=== PATIENT | female | born 1955 | race Caucasian/White ===

== ENCOUNTER 2018-02-01 16:24 | Inpatient (IN) | payer MEDICARE, OTHER, SELFPAY | END 2018-02-06 18:20 | disposition home or self-care (01) | DRG 340 | PROVIDERS: Admitting Provider Surgery; Emergency Provider Emergency Medicine; PCP Family Medicine; Visit Provider Surgery | DX: K35.2 Acute appendicitis with generalized peritonitis (principal); G54.0 Brachial plexus disorders; M79.7 Fibromyalgia; R00.0 Tachycardia, unspecified; B96.20 Unspecified Escherichia coli [E. coli] as the cause of diseases classified elsewhere; R06.89 Other abnormalities of breathing; F17.200 Nicotine dependence, unspecified, uncomplicated; R10.12 Left upper quadrant pain; B96.6 Bacteroides fragilis [B. fragilis] as the cause of diseases classified elsewhere | CPT/HCPCS: 36415; 71260; 71275; 74174; 80048; 80053; 81003; 83605; 83690; 85025; 85610; 85730; 87040; 87070; 87075; 87076; 87077; 87186; 87205; 88304; 93005; 93010; 96361; 96374; 96375; 99058; 99285; J0360; J1100; J1170; J1650; J1885; J2060; J2270; J2405; J2543; J2704; J3010; J7121; Q9967 ==

== ENCOUNTER 2018-02-17 16:26 | Inpatient (IN) | payer MEDICARE, OTHER, SELFPAY ==
[2018-02-17] VITALS (8 sets, daily range): BP systolic 111–147; BP diastolic 69–97; PULSE 71–91; RESP 12–22; TEMP 36.2–36.7; O2SAT 97–100; BMI 27.4
--- NOTE | 2018-02-17 16:58 | DI.CT.S_ITS ---
PROCEDURE: CT ABDOMEN PELVIS W CON INDICATIONS: abdominal pain TECHNIQUE: After the administration of intravenous contrast, 5 mm thick sections acquired from the diaphragm to the symphysis. 5 mm coronal and sagittal reformats were acquired. For radiation dose reduction, the following was used: automated exposure control, adjustment of mA and/or kV according to patient size. COMPARISON: [facility], CT, ANGIO CHEST ABDOMEN PELVIS, 02/01/2018, 17:06. FINDINGS: Image quality: Excellent. ABDOMEN: Lung bases: Lung bases are clear. Heart size is normal. Solid organs: Enlarged gallbladder with small amount of pericholecystic fluid. Normal gallbladder wall thickness. Minimal intrahepatic and extrahepatic ductal dilatation with no obstructing lesion identified. The pancreatic duct is at the upper limits of normal. Pancreatic parenchyma is normal with no abnormal masses and expected enhancement. Kidneys and ureters are normal. Peritoneum and bowel: Bowel loops demonstrate normal wall thickness and caliber. There is a linear enhancing structure extending along the paracolic gutter from the gallbladder to the cecum (se 4 im 28). It measures 6 mm in greatest diameter and extends 8.5 CM (craniocaudal). Interval changes of appendectomy. No bowel perforation or obstruction. Nodes and vessels: No retroperitoneal or mesenteric adenopathy by size criteria. Aorta and inferior vena cava are normal in size. Miscellaneous: No ventral hernias. PELVIS: Genitourinary: Bladder wall thickness is normal. Hysterectomy. Miscellaneous: No inguinal hernias or adenopathy. Bones: No suspicious bony lesions. No vertebral body compression fractures. IMPRESSION: 1. Interval appendectomy. 2. Enhancing linear structure extends from the cecum to the gallbladder in the right paracolic gutter. This finding may be related to the treatment of the patient's appendicitis however its etiology and significance are unknown. 3. The gallbladder is enlarged with pericholecystic fluid. Gallbladder wall thickness is normal. There is mild dilatation of intra-and extrahepatic biliary ducts and a prominent pancreatic duct. No obstructing lesion is identified. Overall findings do not definitely support acute cholecystitis. Please correlate with laboratory values. Consider a HIDA scan for further evaluation. Dictated by: Francisco Vickers M.D. on 02/17/2018 at 18:27 Approved by: Francisco Vickers M.D. on 02/17/2018 at 18:35
[2018-02-17 17:12] LABS: Add Manual Diff / Slide Review NO; Basophils Percent Auto 0.8 % (0-2); Eosinophils Percent Auto 2.1 % (2-4); Hematocrit 35.2 % (36-46); Lymphocytes Percent Auto 17.7 % (25-40); Mean Corpuscular HGB Conc 34.1 % (30-36); Mean Corpuscular Hemoglobin 32.4 PG (26-34); Mean Corpuscular Volume 95.1 fL (80-100); Monocytes Percent Auto 3.9 % (3-14); Neutrophils Absolute Auto 10100 /uL (3000-5900); Neutrophils Percent Auto 75.5 % (50-75); Platelet Count 420 X10^3/uL (150-400); Red Cell Distribution Width 12.8 % (11.6-14.8); White Blood Cell Count 13.4 X10^3/uL (4.5-11.0)
[2018-02-17 17:21] LABS: Alanine Aminotransferase 43 IU/L (9-52); Albumin 4.4 g/dL (3.5-5.0); Albumin Globulin Ratio 1.3 (1.0-2.8); Alkaline Phosphatase 133 U/L (38-126); Aspartate Aminotransferase 147 IU/L (14-36); BUN Creatinine Ratio 12.5 (6-22); Bilirubin Total 0.4 mg/dL (0.2-1.3); Calcium 9.2 mg/dL (8.4-10.2); Estimated Glomerular Filt Rate > 60.0 mL/min (>60); Globulin 3.3 g/dL (1.7-4.1); Glucose 102 mg/dL (80-110); HEMOLYSIS < 15 (0-50); Potassium 3.8 mmol/L (3.4-5.1); Sodium 141 mmol/L (137-145); Total Protein 7.7 g/dL (6.3-8.2)
[2018-02-17 17:22] LABS: Lactate (Lactic Acid) 0.7 mmol/L (0.7-2.1)
[2018-02-17] MEDS: HYDROMORPHONE 0.5 MG SYRINGE 1 MG IV (17:42)
[2018-02-17] MEDS: PIPERACILLIN-TAZO 4.5 GM/100 ML FROZ.PIGGY IV (17:42)
[2018-02-17] MEDS: SODIUM CHLORIDE 0.9% 1,000 ML 1000 ML IV (17:42)
[2018-02-17 18:18] LABS: Appearance Urine UA CLEAR; Bilirubin Urine UA NEGATIVE (NEGATIVE); Color Urine UA YELLOW; Glucose Urine UA NEGATIVE (NEGATIVE); Ketones Urine UA NEGATIVE (NEGATIVE); Leukocyte Esterase Urine UA NEGATIVE (NEGATIVE); Nitrite Urine UA NEGATIVE (NEGATIVE); Occult Blood Urine UA NEGATIVE (NEGATIVE); Protein Urine UA NEGATIVE (NEGATIVE); Urobilinogen Urine UA 0.2 E.U./dL (0.2); pH Urine UA 6.5 (4.5-8.0)
[2018-02-17 18:48] LABS: Bacteria Urine None Seen; Culture Indicated Urine Cult Not Indicated; RBC Urine None Seen (0-5/HPF); Squamous Epithelial Cell Urine 0-1 /HPF; Urine Comments Microscopic Normal; WBC Urine None Seen (0-5/HPF)
[2018-02-17 19:39] LABS: Lipase 148 U/L (23-300)
--- NOTE | 2018-02-17 19:50 | ED_ITS ---
HPI - Abdominal Pain General Chief Complaint: Abdominal Pain Stated Complaint: States recent appendectomy/increased pain Time Seen by Provider: 02/17/18 16:58 History of Present Illness HPI narrative: HPI 62-year-old female presents for evaluation of significant right lower quadrant abdominal pain that increased over the last day. Patient continues pass flatus, stool, urine at baseline. Patient denies fevers and chills. Patient had significant pain on jostling or bumps. Patient reports that she had a surgical intervention for perforated appendix approximately [address] Aceves. M/S/F/SocHx notable for: please see HPI; remainder reviewed with patient and in chart. ROS: Negative constitutional, eye, cardiovascular, pulmonary, GI, , MSK, skin , neurologic, psychiatric, endocrine unless noted in the HPI. Exam Gen: pleasant, appears uncomfortable, not in extremis. HEENT: NC, AT, PEERL, EOMI. Resp: Clear to auscultation bilaterally, normal work of breathing, no accessory muscle usage. Card: Regular rate and rhythm with no murmurs, rubs, or gallops, extremities warm and well perfused. GI: diffuse tenderness to palpation, greatest in the right lower quadrant, moderate rebound, no guarding. : No suprapubic tenderness to palpation. MSK: No visible deformities, strength and tone without visually appreciable deficit. Skin: Normal color with no visible lesions. Neuro: AO x 3, no facial asymmetry, vision and hearing WNL. Psych: Mood and affect appropriate. Labs / Imaging: WBC 13.4, hemoglobin 12.0, platelet 420, neutrophils 100,100, INR 1.0, sodium 141, potassium 3.8, lactic acid 0.7, total bilirubin 0.4, AST 137, ALT 43, alkaline phosphatase 133, lipase pending. CT abdomen/pelvis: interval appendectomy. Enhancing linear structure extends from the cecum to the gallbladder in the right paracolic gutter. This finding may be related to the treatment of the patient?s appendicitis however its etiology and significance are unknown. The gallbladder is enlarged with pericholecystic fluid. Gallbladder wall thicknesses normal. There is mild dilatation of intra-and extrahepatic biliary docs and prominent pancreatic duct. No obstructing lesion is identified. Overall finds do not definitively support acute cholecystitis. Please correlate with laboratory values. Consider HIDA scan for further evaluation. MDM Previous chart, nursing note, labs, imaging, and vitals reviewed. A: 62-year-old female with a perforated appendix approximately 2 weeks ago operated on by Dr. Aceves presents for one day of right lower quadrant pain and abdominal swelling. DDx & Evaluation: patient with mild leukocytosis, lactic WNL, given IV hydration and Zosyn on arrival. CT concerning for a fluid collection the right paracolic gutter as well as findings suggestive of cholecystitis. Surgery consult pending at time of patient care transfer to the overnight provider, Dr. Lynne. Impression: abdominal pain (please reference below for remainder of encounter information) Related Data Home Medications Medication Instructions Recorded Confirmed [MEDICAL MARIJUANA] #0 01/29/17 omega 7-req-wkh-fish oil [Fish Oil] #0 04/23/17 desipramine 50 mg PO #0 02/01/18 Previous Rx's Medication Instructions Recorded amoxicillin-pot clavulanate 875 mg PO BID #14 tab 02/06/18 [Augmentin] gabapentin 300 mg PO TID #90 cap 02/06/18 oxycodone-acetaminophen 0 tab PO Q4HP PRN #30 02/06/18 Allergies Allergy/AdvReac Type Severity Reaction Status Date / Time Cephalosporins AdvReac Mild DIARRHEA Unverified 02/17/18 17:41 [CEPHALOSPORINS] PFSH Social History Smoking Status: Current every day smoker MDM - Abdominal Pain Lab Data Result diagrams: 02/17/18 17:00 02/17/18 17:00 Lab Results 02/17/18 02/17/18 02/17/18 Range/Units 17:00 17:00 17:00 WBC 13.4 H (4.5-11.0) X10^3/uL RBC 3.70 L (4.0-5.2) X10^6/uL Hgb 12.0 (12.0-16.0) g/dL Hct 35.2 L (36-46) % MCV 95.1 (80-100) fL MCH 32.4 (26-34) PG MCHC 34.1 (30-36) % RDW 12.8 (11.6-14.8) % Plt Count 420 H (150-400) X10^3/uL Neut % (Auto) 75.5 H (50-75) % Lymph % (Auto) 17.7 L (25-40) % [place] % (Auto) 3.9 (3-14) % Eos % (Auto) 2.1 (2-4) % Baso % (Auto) 0.8 (0-2) % Neut # (Auto) 80820 H (7395-1071) /uL Sodium 141 (137-145) mmol/L Potassium 3.8 (3.4-5.1) mmol/L Chloride 102.0 (98-107) mmol/L Carbon Dioxide 29.0 (22-32) mmol/L BUN 10.0 (7-17) mg/dL Creatinine 0.80 (0.52-1.04) mg/dL Estimated GFR > 60.0 (>60) mL/min BUN/Creatinine Ratio 12.5 (6-22) Glucose 102 (80-110) mg/dL Lactate 0.7 (0.7-2.1) mmol/L Calcium 9.2 (8.4-10.2) mg/dL Total Bilirubin 0.4 (0.2-1.3) mg/dL AST 147 H (14-36) IU/L ALT 43 (9-52) IU/L Alkaline Phosphatase 133 H (38-126) U/L Total Protein 7.7 (6.3-8.2) g/dL Albumin 4.4 (3.5-5.0) g/dL Globulin 3.3 (1.7-4.1) g/dL Albumin/Globulin Ratio 1.3 (1.0-2.8) Lipase (23-300) U/L Urine Color Urine Appearance Urine pH (4.5-8.0) Ur Specific [place] (1.000-1.035) Urine Protein (NEGATIVE) Urine Glucose (UA) (NEGATIVE) g/dL Urine Ketones (NEGATIVE) Urine Occult Blood (NEGATIVE) Urine Nitrate (NEGATIVE) Urine Bilirubin (NEGATIVE) Urine Urobilinogen (0.2) E.U./dL Ur Leukocyte Esterase (NEGATIVE) Urine RBC (0-5/HPF) Urine WBC (0-5/HPF) Ur Squamous Epith Cells Urine Bacteria (None) Ur Culture Indicated? Micro UA Comment 02/17/18 02/17/18 Range/Units 17:00 17:10 WBC (4.5-11.0) X10^3/uL RBC (4.0-5.2) X10^6/uL Hgb (12.0-16.0) g/dL Hct (36-46) % MCV (80-100) fL MCH (26-34) PG MCHC (30-36) % RDW (11.6-14.8) % Plt Count (150-400) X10^3/uL Neut % (Auto) (50-75) % Lymph % (Auto) (25-40) % [place] % (Auto) (3-14) % Eos % (Auto) (2-4) % Baso % (Auto) (0-2) % Neut # (Auto) (9175-4140) /uL Sodium (137-145) mmol/L Potassium (3.4-5.1) mmol/L Chloride (98-107) mmol/L Carbon Dioxide (22-32) mmol/L BUN (7-17) mg/dL Creatinine (0.52-1.04) mg/dL Estimated GFR (>60) mL/min BUN/Creatinine Ratio (6-22) Glucose (80-110) mg/dL Lactate (0.7-2.1) mmol/L Calcium (8.4-10.2) mg/dL Total Bilirubin (0.2-1.3) mg/dL AST (14-36) IU/L ALT (9-52) IU/L Alkaline Phosphatase (38-126) U/L Total Protein (6.3-8.2) g/dL Albumin (3.5-5.0) g/dL Globulin (1.7-4.1) g/dL Albumin/Globulin Ratio (1.0-2.8) Lipase 148 (23-300) U/L Urine Color Yellow Urine Appearance Clear Urine pH 6.5 (4.5-8.0) Ur Specific [place] 1.010 (1.000-1.035) Urine Protein Negative (NEGATIVE) Urine Glucose (UA) Negative (NEGATIVE) g/dL Urine Ketones Negative (NEGATIVE) Urine Occult Blood Negative (NEGATIVE) Urine Nitrate Negative (NEGATIVE) Urine Bilirubin Negative (NEGATIVE) Urine Urobilinogen 0.2 (0.2) E.U./dL Ur Leukocyte Esterase Negative (NEGATIVE) Urine RBC None seen (0-5/HPF) Urine WBC None seen (0-5/HPF) Ur Squamous Epith Cells 0-1 /hpf Urine Bacteria None seen (None) Ur Culture Indicated? Cult not indicated Micro UA Comment Microscopic normal Discharge Plan Departure Prescriptions: No Action [MEDICAL MARIJUANA] Qty: 0 RF: 0 omega 8-exv-atm-fish oil [Fish Oil] 1,000 MG capsule Qty: 0 RF: 0 desipramine 50 MG tablet 50 mg PO Qty: 0 RF: 0 oxycodone-acetaminophen 5 MG/325 MG tablet PO Q4HP PRNQty: 30 RF: 0 gabapentin 100 MG capsule 300 mg PO TID Qty: 90 RF: 0 amoxicillin-pot clavulanate [Augmentin] 875 MG/125 MG tablet 875 mg PO BID Qty: 14 RF: 0
--- NOTE | 2018-02-17 23:40 | PC.NURSE ---
Pt arrived to floor at 2220. States that discomfort 05/24. notified, new orders recieved. HL RAC intact/ patent. Pt oritned to room and call system. Call light w/in reach. Continue w/plan of care.
[2018-02-18] VITALS (7 sets, daily range): BP systolic 115–148; BP diastolic 72–81; PULSE 63–74; RESP 12–18; TEMP 36.3–36.7; O2SAT 95–98
[2018-02-18] MEDS: SODIUM CHLORIDE 0.9% 1,000 ML 125 ML IV ×3 (00:04→21:42)
[2018-02-18] MEDS: PIPERACILLIN-TAZO 3.375 GM/50 ML FROZ.PIGGY IV ×4 (00:08→20:05)
[2018-02-18] MEDS: HYDROMORPHONE PCA 6 MG/30 ML PCA.VIAL IV ×2 (07:25→13:25)
--- NOTE | 2018-02-18 07:54 | PM.HP.1 ---
History of Present Illness Date Patient Seen: 02/18/18 Time Patient Seen: 07:54 Chief complaint: States recent appendectomy/increased pain Narrative: Anita Stewart is a 62 year old female who is status post laparoscopic appendectomy for ruptured appendicitis on February 01, 2018 and presented to the emergency department late last evening with progressive abdominal pain. She feels subjectively distended but has not had any nausea or vomiting. Denies any fever or chills. No wound drainage or erythema. She has been ambulating without difficulty. She notes no exacerbating foods or activities with regard to her pain. Denies dysuria or hematuria. She has been moving her bowels daily although the stool has been somewhat liquid in nature. No melena, hematochezia, or bright red blood per rectum. Passing flatus normally. She has been tolerating a regular diet without any issues with regard to her pain. [facility] Medical History Fibromyalgia (Chronic) Social History household members: spouse Smoking Status: Current every day smoker Meds Home Medications Medication Instructions Recorded Confirmed Type [MEDICAL MARIJUANA] #0 01/29/17 History omega 8-unf-hfh-fish oil [Fish Oil] #0 04/23/17 History desipramine 50 mg PO #0 02/01/18 History Generic Name Dose Route Start Last Admin Trade Name Freq PRN Reason Stop Dose Admin Acetaminophen 650 mg 02/18/18 07:48 Tylenol PO Q6HR PRN As Needed for Fever/Mild Pain Al Hydrox/Mg Hydrox/Simethicone 30 ml 02/18/18 07:48 Maalox Plus PO Q6HR PRN Dyspepsia Calcium Carbonate 1,000 mg 02/18/18 07:48 Tums PO Q4HR PRN Dyspepsia Docusate Sodium 100 mg 02/18/18 21:00 Colace PO BID JORGE A HYDROMORPHONE [employer]ID [employer]ENDANT 6 mg in 30 mls @ 0 mls/hr 02/18/18 06:00 02/18/18 07:25 Dilaudid 6 Mg/30 Ml IV 0 mls/hr Q8HR JORGE A Administration Protocol Piperacillin/Tazobactam/Dextrose 3.375 gm in 50 mls @ 100 mls/hr 02/18/18 00:01 02/18/18 07:20 Zosyn IV Infused Q6H JORGE A Infusion Sodium Chloride 1,000 mls @ 125 mls/hr 02/17/18 23:00 02/18/18 00:04 Normal Saline 0.9% IV 125 mls/hr CONT JORGE A Administration Sodium Chloride 1,000 mls @ 100 mls/hr 02/18/18 08:00 Normal Saline 0.45% IV CONT JORGE A Ibuprofen 600 mg 02/18/18 07:48 Advil PO Q6HR PRN As Needed for Fever/Mild Pain Magnesium Hydroxide 30 ml 02/18/18 07:48 Milk Of Magnesia PO DAILY PRN Constipation Naloxone HCl 0.2 mg 02/17/18 23:00 Narcan IV Q2MIN PRN Opiate Reversal Protocol Ondansetron HCl 4 mg 02/18/18 07:48 Zofran IV Q8HR PRN Nausea And Vomiting Pantoprazole Sodium 20 mg 02/19/18 06:00 Protonix PO 0600 JORGE A Promethazine HCl 12.5 mg 02/18/18 07:48 Phenadoz [place] Q6HR PRN Nausea And Vomiting Allergies Allergy/AdvReac Type Severity Reaction Status Date / Time Cephalosporins AdvReac Mild DIARRHEA Unverified 02/17/18 17:41 [CEPHALOSPORINS] Review of Systems Review of Systems All systems reviewed & are unremarkable except as noted in HPI and below Exam Vital Signs (past 8 hours): Vital Signs - 8 hr 02/18/18 00:15 02/18/18 05:42 02/18/18 07:25 Temperature 97.8 F 97.9 F 97.4 F L Pulse Rate 73 73 74 Respiratory Rate 18 18 18 Blood Pressure 131/72 H 130/81 H 148/72 H Pulse Oximetry 96 96 97 Temperature 97.4 F Temperature 97.9 F Temperature 97.8 F Pulse Rate 74 Pulse Rate 73 Pulse Rate 73 Respiratory Rate 18 Respiratory Rate 18 Respiratory Rate 18 Blood Pressure 148/72 Blood Pressure 130/81 Blood Pressure 131/72 Pulse Oximetry 97 Pulse Oximetry 96 Pulse Oximetry 96 Narrative Exam Narrative: Well-nourished well-developed female lying comfortably in bed in no acute distress. In fact, she appears quite comfortable overall. Alert oriented x3. Nursing staff is at the bedside during my visit. She is completely hemodynamically stable with no tachycardia or hypotension. No fevers in the emergency department or since admission with a maximum temperature of approximately 97.9 Sclera nonicteric Neck is supple Regular rate and rhythm. No murmurs. Abdomen is soft and minimally distended. However, she is not tympanitic. Her incisions are healing nicely without erythema, ecchymosis, hematoma, or seroma. No drainage from the incisions. No hepatomegaly. Negative Bledsoe sign. No masses. She is appropriately tender in the right lower quadrant and right lateral abdomen but without guarding or rebound. Mild suprapubic tenderness only. Extremities show no clubbing, cyanosis, or edema Objective Labs Result Diagrams: 02/17/18 17:00 02/17/18 17:00 Labs: Laboratory Results - last 24 hr 02/17/18 02/17/18 02/17/18 17:00 17:00 17:00 WBC 13.4 H RBC 3.70 L Hgb 12.0 Hct 35.2 L MCV 95.1 MCH 32.4 MCHC 34.1 RDW 12.8 Plt Count 420 H Neut % (Auto) 75.5 H Lymph % (Auto) 17.7 L [place] % (Auto) 3.9 Eos % (Auto) 2.1 Baso % (Auto) 0.8 Neut # (Auto) 21747 H Sodium 141 Potassium 3.8 Chloride 102.0 Carbon Dioxide 29.0 BUN 10.0 Creatinine 0.80 Estimated GFR > 60.0 BUN/Creatinine Ratio 12.5 Glucose 102 Lactate 0.7 Calcium 9.2 Total Bilirubin 0.4 AST 147 H ALT 43 Alkaline Phosphatase 133 H Total Protein 7.7 Albumin 4.4 Globulin 3.3 Albumin/Globulin Ratio 1.3 Lipase Urine Color Urine Appearance Urine pH Ur Specific [place] Urine Protein Urine Glucose (UA) Urine Ketones Urine Occult Blood Urine Nitrate Urine Bilirubin Urine Urobilinogen Ur Leukocyte Esterase Urine RBC Urine WBC Ur Squamous Epith Cells Urine Bacteria Ur Culture Indicated? Micro UA Comment 02/17/18 02/17/18 17:00 17:10 WBC RBC Hgb Hct MCV MCH MCHC RDW Plt Count Neut % (Auto) Lymph % (Auto) [place] % (Auto) Eos % (Auto) Baso % (Auto) Neut # (Auto) Sodium Potassium Chloride Carbon Dioxide BUN Creatinine Estimated GFR BUN/Creatinine Ratio Glucose Lactate Calcium Total Bilirubin AST ALT Alkaline Phosphatase Total Protein Albumin Globulin Albumin/Globulin Ratio Lipase 148 Urine Color Yellow Urine Appearance Clear Urine pH 6.5 Ur Specific [place] 1.010 Urine Protein Negative Urine Glucose (UA) Negative Urine Ketones Negative Urine Occult Blood Negative Urine Nitrate Negative Urine Bilirubin Negative Urine Urobilinogen 0.2 Ur Leukocyte Esterase Negative Urine RBC None seen Urine WBC None seen Ur Squamous Epith Cells 0-1 /hpf Urine Bacteria None seen Ur Culture Indicated? Cult not indicated Micro UA Comment Microscopic normal Assessment & Plan Plan: Plan: 62-year-old female now approximately 16 days status post laparoscopic appendectomy for perforated appendicitis who presents now with abdominal pain most likely related to generalized peritoneal inflammation. I doubt acute cholecystitis. There is no evidence of postoperative abscess. No evidence of appendiceal stump leak. No evidence of bowel obstruction or other complications. She does have a mild leukocytosis which could be inflammatory in nature versus occult infection as represented on CT scan by some mild residual fluid in the right pericolic gutter. Again, however, there is no discrete abscess. She will be admitted for intravenous fluid resuscitation. Intravenous Zosyn has been reinstituted as well based on her prior hospitalization and culture results. I will allow her clear liquid diet today since she has no obvious acute surgical disease requiring intervention at the moment. If she has difficulties with progressive right-sided pain, nausea, vomiting, or inability to tolerate a diet then I will obtain a CCK HIDA scan to better assess the gallbladder. If she does indeed tolerate clear liquids throughout the day then will advance her to a regular diet tonight. Possibly home tomorrow if she does well. I will repeat her CBC, complete metabolic panel, and procalcitonin level tomorrow morning. She may continue home medications. I discussed all the above with the patient in detail. All questions were answered to her satisfaction, and she voiced understanding. Orders were written.
--- NOTE | 2018-02-18 07:57 | P.HP_ITS ---
History of Present Illness Date Patient Seen: 02/18/18 Time Patient Seen: 07:54 Chief complaint: States recent appendectomy/increased pain Narrative: Anita Stewart is a 62 year old female who is status post laparoscopic appendectomy for ruptured appendicitis on February 01, 2018 and presented to the emergency department late last evening with progressive abdominal pain. She feels subjectively distended but has not had any nausea or vomiting. Denies any fever or chills. No wound drainage or erythema. She has been ambulating without difficulty. She notes no exacerbating foods or activities with regard to her pain. Denies dysuria or hematuria. She has been moving her bowels daily although the stool has been somewhat liquid in nature. No melena, hematochezia, or bright red blood per rectum. Passing flatus normally. She has been tolerating a regular diet without any issues with regard to her pain. [facility] Medical History Fibromyalgia (Chronic) Social History household members: spouse Smoking Status: Current every day smoker Meds Home Medications Medication Instructions Recorded Confirmed Type [MEDICAL MARIJUANA] #0 01/29/17 History omega 3-mio-qze-fish oil [Fish Oil] #0 04/23/17 History desipramine 50 mg PO #0 02/01/18 History Generic Name Dose Route Start Last Admin Trade Name Freq PRN Reason Stop Dose Admin Acetaminophen 650 mg 02/18/18 07:48 Tylenol PO Q6HR PRN As Needed for Fever/Mild Pain Al Hydrox/Mg Hydrox/Simethicone 30 ml 02/18/18 07:48 Maalox Plus PO Q6HR PRN Dyspepsia Calcium Carbonate 1,000 mg 02/18/18 07:48 Tums PO Q4HR PRN Dyspepsia Docusate Sodium 100 mg 02/18/18 21:00 Colace PO BID JORGE A HYDROMORPHONE STREET LIGHT SERVICER SUPERVISOR 6 mg in 30 mls @ 0 mls/hr 02/18/18 06:00 02/18/18 07:25 Dilaudid 6 Mg/30 Ml IV 0 mls/hr Q8HR JORGE A Administration Protocol Piperacillin/Tazobactam/Dextrose 3.375 gm in 50 mls @ 100 mls/hr 02/18/18 00: 01 02/18/18 07:20 Zosyn IV Infused Q6H JORGE A Infusion Sodium Chloride 1,000 mls @ 125 mls/hr 02/17/18 23:00 02/18/18 00:04 Normal Saline 0.9% IV 125 mls/hr CONT JORGE A Administration Sodium Chloride 1,000 mls @ 100 mls/hr 02/18/18 08:00 Normal Saline 0.45% IV CONT JORGE A Ibuprofen 600 mg 02/18/18 07:48 Advil PO Q6HR PRN As Needed for Fever/Mild Pain Magnesium Hydroxide 30 ml 02/18/18 07:48 Milk Of Magnesia PO DAILY PRN Constipation Naloxone HCl 0.2 mg 02/17/18 23:00 Narcan IV Q2MIN PRN Opiate Reversal Protocol Ondansetron HCl 4 mg 02/18/18 07:48 Zofran IV Q8HR PRN Nausea And Vomiting Pantoprazole Sodium 20 mg 02/19/18 06:00 Protonix PO 0600 JORGE A Promethazine HCl 12.5 mg 02/18/18 07:48 Phenadoz SD Q6HR PRN Nausea And Vomiting Allergies Allergy/AdvReac Type Severity Reaction Status Date / Time Cephalosporins AdvReac Mild DIARRHEA Unverified 02/17/18 17:41 [CEPHALOSPORINS] Review of Systems Review of Systems All systems reviewed & are unremarkable except as noted in HPI and below Exam Vital Signs (past 8 hours): Vital Signs - 8 hr 3 02/18/18 00:15 02/18/18 05:42 02/18/18 07:25 Temperature 97.8 F 97.9 F 97.4 F L Pulse Rate 73 73 74 Respiratory Rate 18 18 18 Blood Pressure 131/72 H 130/81 H 148/72 H Pulse Oximetry 96 96 97 Temperature 97.4 F Temperature 97.9 F Temperature 97.8 F Pulse Rate 74 Pulse Rate 73 Pulse Rate 73 Respiratory Rate 18 Respiratory Rate 18 Respiratory Rate 18 Blood Pressure 148/72 Blood Pressure 130/81 Blood Pressure 131/72 Pulse Oximetry 97 Pulse Oximetry 96 Pulse Oximetry 96 Narrative Exam Narrative: Well-nourished well-developed female lying comfortably in bed in no acute distress. In fact, she appears quite comfortable overall. Alert oriented x3. Nursing staff is at the bedside during my visit. She is completely hemodynamically stable with no tachycardia or hypotension. No fevers in the emergency department or since admission with a maximum temperature of approximately 97.9 Sclera nonicteric Neck is supple Regular rate and rhythm. No murmurs. Abdomen is soft and minimally distended. However, she is not tympanitic. Her incisions are healing nicely without erythema, ecchymosis, hematoma, or seroma. No drainage from the incisions. No hepatomegaly. Negative Bledsoe sign. No masses. She is appropriately tender in the right lower quadrant and right lateral abdomen but without guarding or rebound. Mild suprapubic tenderness only. Extremities show no clubbing, cyanosis, or edema Objective Labs Result Diagrams: 02/17/18 17:00 02/17/18 17:00 Labs: Laboratory Results - last 24 hr 02/17/18 02/17/18 02/17/18 17:00 17:00 17:00 WBC 13.4 H RBC 3.70 L Hgb 12.0 Hct 35.2 L MCV 95.1 MCH 32.4 MCHC 34.1 RDW 12.8 Plt Count 420 H Neut % (Auto) 75.5 H Lymph % (Auto) 17.7 L [place] % (Auto) 3.9 Eos % (Auto) 2.1 Baso % (Auto) 0.8 Neut # (Auto) 05300 H Sodium 141 Potassium 3.8 Chloride 102.0 Carbon Dioxide 29.0 BUN 10.0 Creatinine 0.80 Estimated GFR > 60.0 BUN/Creatinine Ratio 12.5 Glucose 102 Lactate 0.7 Calcium 9.2 Total Bilirubin 0.4 AST 147 H ALT 43 Alkaline Phosphatase 133 H Total Protein 7.7 Albumin 4.4 Globulin 3.3 Albumin/Globulin Ratio 1.3 Lipase Urine Color Urine Appearance Urine pH Ur Specific [place] Urine Protein Urine Glucose (UA) Urine Ketones Urine Occult Blood Urine Nitrate Urine Bilirubin Urine Urobilinogen Ur Leukocyte Esterase Urine RBC Urine WBC Ur Squamous Epith Cells Urine Bacteria Ur Culture Indicated? Micro UA Comment 02/17/18 02/17/18 17:00 17:10 WBC RBC Hgb Hct MCV MCH MCHC RDW Plt Count Neut % (Auto) Lymph % (Auto) [place] % (Auto) Eos % (Auto) Baso % (Auto) Neut # (Auto) Sodium Potassium Chloride Carbon Dioxide BUN Creatinine Estimated GFR BUN/Creatinine Ratio Glucose Lactate Calcium Total Bilirubin AST ALT Alkaline Phosphatase Total Protein Albumin Globulin Albumin/Globulin Ratio Lipase 148 Urine Color Yellow Urine Appearance Clear Urine pH 6.5 Ur Specific [place] 1.010 Urine Protein Negative Urine Glucose (UA) Negative Urine Ketones Negative Urine Occult Blood Negative Urine Nitrate Negative Urine Bilirubin Negative Urine Urobilinogen 0.2 Ur Leukocyte Esterase Negative Urine RBC None seen Urine WBC None seen Ur Squamous Epith Cells 0-1 /hpf Urine Bacteria None seen Ur Culture Indicated? Cult not indicated Micro UA Comment Microscopic normal Assessment & Plan Plan: Plan: 62-year-old female now approximately 16 days status post laparoscopic appendectomy for perforated appendicitis who presents now with abdominal pain most likely related to generalized peritoneal inflammation. I doubt acute cholecystitis. There is no evidence of postoperative abscess. No evidence of appendiceal stump leak. No evidence of bowel obstruction or other complications. She does have a mild leukocytosis which could be inflammatory in nature versus occult infection as represented on CT scan by some mild residual fluid in the right pericolic gutter. Again, however, there is no discrete abscess. She will be admitted for intravenous fluid resuscitation. Intravenous Zosyn has been reinstituted as well based on her prior hospitalization and culture results. I will allow her clear liquid diet today since she has no obvious acute surgical disease requiring intervention at the moment. If she has difficulties with progressive right-sided pain, nausea, vomiting, or inability to tolerate a diet then I will obtain a CCK HIDA scan to better assess the gallbladder. If she does indeed tolerate clear liquids throughout the day then will advance her to a regular diet tonight. Possibly home tomorrow if she does well. I will repeat her CBC, complete metabolic panel , and procalcitonin level tomorrow morning. She may continue home medications. I discussed all the above with the patient in detail. All questions were answered to her satisfaction, and she voiced understanding. Orders were written.
[2018-02-18] MEDS: SODIUM CHLORIDE 0.45% 1,000 ML 100 ML IV (10:09)
--- NOTE | 2018-02-18 11:12 | PC.NURSE ---
Pt alert, oriented, indep in room, using SEAFOOD TECHNOLOGY SPECIALIST for effective pain control to abdomen. Tolerating clear liquids.
--- NOTE | 2018-02-18 11:51 | CM.DANOTE ---
DCP/Assessment continued: Reviewed chart. Patient is a 62yr old female admitted to I.. under OBS status with abd pain. Pt. underwent emergent appendectomy on 02-01-18 at .. with Dr. Aceves. Primary payor is 1)Lianne Chiu 2)[facility]. PCP is Dr. Car in [place]. Met with patient explained CM/SW role. Patient alert and oriented at time of visit. Patient reports that she is I with all ADL's. Pt. does not anticipate any d/c planning needs. Patient resides with spouse/Jj on their boat located at [facility]. Pt. uses no DME at baseline. Currently patient on clear liquid diet and no discharge anticipated for today. P: CM team to continue to follow as needed. Anticipate home with supportive spouse when medically stable. BRISEYDA Goemz
[2018-02-18] MEDS: GABAPENTIN 300 MG CAPSULE PO ×2 (14:06→20:07)
[2018-02-18] MEDS: ONDANSETRON 4 MG/2 ML INJ IV (14:06)
--- NOTE | 2018-02-18 14:55 | PC.NURSE ---
Pt c/o nausea, no emesis, given 4mg ivp zofran.
[2018-02-18] MEDS: HYDROMORPHONE PCA 6 MG/30 ML PCA.VIAL 5.2 MG IV (22:27)
[2018-02-18] MEDS: ACETAMINOPHEN 325 MG TABLET 650 MG PO (22:43)
[2018-02-19] VITALS (8 sets, daily range): BP systolic 121–164; BP diastolic 71–93; PULSE 72–95; RESP 14–20; TEMP 36.3–36.9; O2SAT 93–98
--- NOTE | 2018-02-19 00:46 | PC.NURSE ---
Evening Shift Note: Pt received sitting up in bed, on RA, using dilaudid pharmacist critical care for abdominal pain. Pt used 5.2 mg IV dilaudid. Pt tolerating clear liquid diet, denies nausea. Abdomen is soft and tender to palpation. BTs present in all quadrants except RUQ. Tylenol given for headache. Dr. Loera to bedside. Will continue to monitor, notify MD with changes.
[2018-02-19] MEDS: PIPERACILLIN-TAZO 3.375 GM/50 ML FROZ.PIGGY IV ×4 (01:26→17:56)
[2018-02-19] MEDS: ACETAMINOPHEN 325 MG TABLET 650 MG PO (04:27)
[2018-02-19 05:51] LABS: Add Manual Diff / Slide Review NO; Basophils Percent Auto 0.3 % (0-2); Eosinophils Percent Auto 4.5 % (2-4); Hematocrit 32.3 % (36-46); Hemoglobin 10.8 g/dL (12.0-16.0); Lymphocytes Percent Auto 19.7 % (25-40); Mean Corpuscular HGB Conc 33.6 % (30-36); Mean Corpuscular Hemoglobin 32.5 PG (26-34); Mean Corpuscular Volume 96.8 fL (80-100); Monocytes Percent Auto 6.8 % (3-14); Neutrophils Absolute Auto 5500 /uL (3000-5900); Neutrophils Percent Auto 68.7 % (50-75); Platelet Count 311 X10^3/uL (150-400); Red Blood Cell Count 3.34 X10^6/uL (4.0-5.2); Red Cell Distribution Width 12.7 % (11.6-14.8)
[2018-02-19 06:07] LABS: Alanine Aminotransferase 47 IU/L (9-52); Albumin 3.1 g/dL (3.5-5.0); Albumin Globulin Ratio 1.2 (1.0-2.8); Alkaline Phosphatase 106 U/L (38-126); Aspartate Aminotransferase 63 IU/L (14-36); Bilirubin Total 0.4 mg/dL (0.2-1.3); Calcium 8.5 mg/dL (8.4-10.2); Estimated Glomerular Filt Rate > 60.0 mL/min (>60); Globulin 2.5 g/dL (1.7-4.1); Glucose 90 mg/dL (80-110); HEMOLYSIS < 15 (0-50); Potassium 3.9 mmol/L (3.4-5.1); Sodium 140 mmol/L (137-145); Total Protein 5.6 g/dL (6.3-8.2)
[2018-02-19] MEDS: PANTOPRAZOLE 20 MG TABLET PO (06:11)
[2018-02-19] MEDS: SODIUM CHLORIDE 0.9% 1,000 ML 125 ML IV (06:44)
[2018-02-19] MEDS: HYDROMORPHONE PCA 6 MG/30 ML PCA.VIAL IV ×3 (06:44→16:30)
[2018-02-19 07:15] LABS: Procalcitonin < 0.05 ng/mL (<0.5)
--- NOTE | 2018-02-19 08:00 | DI.NM.S_ITS ---
PROCEDURE: NM HIDA NO EJECTION FRACTION RADIOPHARMACEUTICAL: 4.5 mCi Tc-99m mebrofenin IV. INDICATIONS: 62 year-old female with right upper quadrant pain and nausea, with pericholecystic fluid on recent CT scan. TECHNIQUE: Following intravenous administration of Tc-99m mebrofenin, sequential anterior abdominal images were obtained through at least 60 minutes. COMPARISON: [facility], CT, CT ABDOMEN PELVIS W CON, 02/17/2018, 17:56. FINDINGS: There is normal tracer uptake and excretion by the liver. There is normal visualization of intrahepatic ducts, common bile duct, and the gallbladder. There is normal tracer excretion into duodenum. IMPRESSION: No scintigraphic findings to suggest acute cholecystitis. Prompt flow of radiotracer into the gallbladder lumen. Dictated by: Vivek Goff M.D. on 02/19/2018 at 12:05 Approved by: Vivek Goff M.D. on 02/19/2018 at 12:06
[2018-02-19] MEDS: GABAPENTIN 300 MG CAPSULE PO ×3 (10:13→20:37)
[2018-02-19] MEDS: DOCUSATE 100 MG CAPSULE PO (10:13)
--- NOTE | 2018-02-19 15:51 | PC.NURSE ---
pt will not have surgery on gallbladder, per Dr. Loera patients gallbladder is ok. she will have medical assembler d/cd and start on oral pain medication. incisions x3 from lap appe all wnl and closed with durmobond from surgery a couple of weeks ago. bt +x4, abdomen slightly distended but soft. resting comfortably.
--- NOTE | 2018-02-19 16:02 | PM.PN.1 ---
Subjective Interval history: Pain improved. No nausea or vomiting. Appetite is slowly returning. Still has some vague diffuse abdominal pain and mild distention. However, she continues to pass flatus. No bowel movement today. No dysuria. Date Patient Seen: 02/19/18 Time Patient Seen: 16:02 Exam Vital Signs (past 8 hours): Vital Signs - 8 hr 02/19/18 13:00 Temperature 98.0 F Pulse Rate 77 Respiratory Rate 14 Blood Pressure 144/88 H Pulse Oximetry 93 Temperature 98.0 F Pulse Rate 77 Respiratory Rate 14 Blood Pressure 144/88 Pulse Oximetry 93 Narrative Exam Narrative: Well-nourished well-developed female resting comfortably in bed in no acute distress. Alert oriented x3. Sclera are nonicteric Regular rate and rhythm Abdomen mildly distended but soft. She is minimally tender to palpation throughout. No Bledsoe sign. No guarding or rebound. Incisions remained clean, dry, and intact. Objective Labs Result Diagrams: 02/19/18 05:14 02/19/18 05:14 Labs: Laboratory Results - last 24 hr 02/19/18 02/19/18 02/19/18 05:14 05:14 05:14 WBC 8.0 RBC 3.34 L Hgb 10.8 L Hct 32.3 L MCV 96.8 MCH 32.5 MCHC 33.6 RDW 12.7 Plt Count 311 Neut % (Auto) 68.7 Lymph % (Auto) 19.7 L [place] % (Auto) 6.8 Eos % (Auto) 4.5 H Baso % (Auto) 0.3 Neut # (Auto) 5500 Sodium 140 Potassium 3.9 Chloride 106.0 Carbon Dioxide 28.0 BUN 3.0 L Creatinine 0.60 Estimated GFR > 60.0 BUN/Creatinine Ratio 5.0 L Glucose 90 Calcium 8.5 Total Bilirubin 0.4 AST 63 H ALT 47 Alkaline Phosphatase 106 Total Protein 5.6 L Albumin 3.1 L Globulin 2.5 Albumin/Globulin Ratio 1.2 Procalcitonin < 0.05 Assessment & Plan Plan: Plan: 62-year-old female status post appendectomy for ruptured appendicitis with abdominal pain of unclear etiology. She may just be experiencing mild ileus secondary to her narcotic requirements. She states that she was taking 2 tablets of prescribed Percocet every 3 hr at home since surgery. Her HIDA scan shows no evidence of acute cholecystitis today. Overall she appears somewhat improved. Her laboratory studies are unremarkable including procalcitonin. 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 Assist bowel function. Will order oral Dilaudid that will hopefully last longer than the Percocet for pain control. She may shower. Advanced to regular diet as tolerated. If she remains stable then likely discharged home tomorrow morning. All the above discussed with the patient in detail. All questions answered to her satisfaction, and she voiced understanding.
--- NOTE | 2018-02-19 16:06 | P.PN_ITS ---
Subjective Interval history: Pain improved. No nausea or vomiting. Appetite is slowly returning. Still has some vague diffuse abdominal pain and mild distention. However, she continues to pass flatus. No bowel movement today. No dysuria. Date Patient Seen: 02/19/18 Time Patient Seen: 16:02 Exam Vital Signs (past 8 hours): Vital Signs - 8 hr 3 02/19/18 13:00 Temperature 98.0 F Pulse Rate 77 Respiratory Rate 14 Blood Pressure 144/88 H Pulse Oximetry 93 Temperature 98.0 F Pulse Rate 77 Respiratory Rate 14 Blood Pressure 144/88 Pulse Oximetry 93 Narrative Exam Narrative: Well-nourished well-developed female resting comfortably in bed in no acute distress. Alert oriented x3. Sclera are nonicteric Regular rate and rhythm Abdomen mildly distended but soft. She is minimally tender to palpation throughout. No Bledsoe sign. No guarding or rebound. Incisions remained clean, dry, and intact. Objective Labs Result Diagrams: 02/19/18 05:14 02/19/18 05:14 Labs: Laboratory Results - last 24 hr 02/19/18 02/19/18 02/19/18 05:14 05:14 05:14 WBC 8.0 RBC 3.34 L Hgb 10.8 L Hct 32.3 L MCV 96.8 MCH 32.5 MCHC 33.6 RDW 12.7 Plt Count 311 Neut % (Auto) 68.7 Lymph % (Auto) 19.7 L [place] % (Auto) 6.8 Eos % (Auto) 4.5 H Baso % (Auto) 0.3 Neut # (Auto) 5500 Sodium 140 Potassium 3.9 Chloride 106.0 Carbon Dioxide 28.0 BUN 3.0 L Creatinine 0.60 Estimated GFR > 60.0 BUN/Creatinine Ratio 5.0 L Glucose 90 Calcium 8.5 Total Bilirubin 0.4 AST 63 H ALT 47 Alkaline Phosphatase 106 Total Protein 5.6 L Albumin 3.1 L Globulin 2.5 Albumin/Globulin Ratio 1.2 Procalcitonin < 0.05 Assessment & Plan Plan: Plan: 62-year-old female status post appendectomy for ruptured appendicitis with abdominal pain of unclear etiology. She may just be experiencing mild ileus secondary to her narcotic requirements. She states that she was taking 2 tablets of prescribed Percocet every 3 hr at home since surgery. Her HIDA scan shows no evidence of acute cholecystitis today. Overall she appears somewhat improved. Her laboratory studies are unremarkable including procalcitonin. I will therefore discontinue IV fluids and Dilaudid BARTENDER. Assist bowel function. Will order oral Dilaudid that will hopefully last longer than the Percocet for pain control. She may shower. Advanced to regular diet as tolerated. If she remains stable then likely discharged home tomorrow morning. All the above discussed with the patient in detail. All questions answered to her satisfaction, and she voiced understanding.
[2018-02-19] MEDS: HYDROMORPHONE 2 MG TABLET PO ×2 (16:46→20:37)
[2018-02-19] MEDS: SODIUM CHLORIDE 0.9% FLUSH 10 ML IV (20:38)
[2018-02-20] MEDS: PIPERACILLIN-TAZO 3.375 GM/50 ML FROZ.PIGGY IV ×2 (00:54→05:51)
[2018-02-20] MEDS: HYDROMORPHONE 2 MG TABLET PO ×3 (00:55→10:14)
[2018-02-20] MEDS: SODIUM CHLORIDE 0.9% FLUSH 10 ML IV (00:55)
[2018-02-20 00:57] VITALS: BP 155/94; PULSE 89; RESP 17; TEMP 37.4; O2SAT 94
[2018-02-20 01:09] VITALS: O2SAT 94
[2018-02-20 04:50] VITALS: BP 144/95; PULSE 85; RESP 17; TEMP 36.6; O2SAT 96
[2018-02-20] MEDS: PANTOPRAZOLE 20 MG TABLET PO (05:51)
[2018-02-20 08:00] VITALS: BP 158/96; PULSE 75; RESP 16; TEMP 36.9
--- NOTE | 2018-02-20 09:46 | P.DS_ITS ---
History of Present Illness Date Patient Seen: 02/20/18 Time Patient Seen: 09:39 Chief complaint: States recent appendectomy/increased pain Narrative: Anita Stewart is a 62 year old female status post laparoscopic appendectomy for perforated appendicitis with associated peritonitis. She returned to the emergency department with complaints of progressive abdominal pain, abdominal distention, and decreasing bowel function. She was admitted for pain control and further evaluation. Discharge Providers Date of admission: 02/18/18 07:49 Primary care physician: Kelsey Car MD Discharge provider: Jeronimo Loera MD Summary Hospital Course: Patient admitted with the above issues. She was maintained on bowel rest and received intravenous Zosyn. CT scan did not demonstrate an abscess. However, she continued to have some right upper quadrant abdominal pain with minimally elevated liver function tests. There was some pericholecystic fluid on CT scan as well. HIDA scan was obtained which did not show any evidence of acute cholecystitis. She responded well to Dilaudid IT ENGINEER subsequently changed to oral Dilaudid. She is experiencing excellent pain control at this time. She is ambulating without difficulty. She has been afebrile and hemodynamically stable throughout her entire stay. No nausea or vomiting. Now tolerating a regular diet without issue. She is ambulating well. Showering without difficulty also. Incisions are clean, dry, and intact healing nicely. She has had return of normal bowel function with the assistance of mild laxatives and stool softeners. White blood cell count and procalcitonin levels are now normal. Because of her improved condition she is discharged home. She does not need any further antibiotic therapy. We will change her to oral Dilaudid which seems to be working well for her as opposed to the Vicodin she was receiving previously. Continue all of her usual home medications otherwise. She will follow-up as scheduled next week in the surgery clinic. However, she has been instructed to call or return sooner for recurrence progressive pain, inability to tolerate a diet, fever, chills, wound drainage, or progressive lack of bowel function. All questions were answered to her satisfaction, and she voiced understanding. Discharge Diagnosis (1) Fibromyalgia: Status: Chronic (2) Abdominal pain: Status: Acute (3) Appendicitis: Status: Resolved (4) Acute perforated appendicitis: Status: Resolved Status at Discharge Functional status at discharge: independent ambulation Overall status at discharge: patient is progressing back to baseline Time Spent with Patient Total time spent providing and/or coordinating discharge services: Less than 30 minutes Specific discharge activities: 1. No driving while taking opioid pain medications 2. May shower Exam Vital Signs (past 8 hours): Vital Signs - 8 hr 3 02/20/18 04:50 Temperature 97.9 F Pulse Rate 85 Respiratory Rate 17 Blood Pressure 144/95 H Pulse Oximetry 96 Pulse Oximetry 96 Oxygen Delivery Method Room Air Oxygen Flow Rate 0 Objective Labs Result Diagrams: 02/19/18 05:14 02/19/18 05:14 Discharge Plan Discharge Plan Patient Disposition: Home, Self-Care Provider Discharge Instructions Diet: Diet as Tolerated Activity: Activity as tolerated Cold/Heat Therapy: Apply ice as needed for comfort Wound Care Report to your healthcare provider any signs of infection, such as:: chills, fever, increased pain and unusual drainage Dressing comment: May shower Discharge Data Primary Care Provider: Kelsey Car Attending Provider: Jeronimo Loera Admit Date/Time: 02/18/18 07:49
[2018-02-20] MEDS: GABAPENTIN 300 MG CAPSULE PO (10:14)
--- NOTE | 2018-04-02 15:06 | PC.NURSE ---
Late Entry per Keiko Prado RN - Zosyn IV infusion started 02/17/18 at 1742 and completed (stopped) 02/17/18 at 1757.
== END 2018-02-20 11:00 | disposition home or self-care (01) | DRG 390 ==
LOC: ED 21:43 → AC 21:44
PROVIDERS: Emergency Medicine; Admitting Provider Surgery; Emergency Provider Emergency Medicine; PCP Family Medicine; Visit Provider Surgery
DX: K56.7 Ileus, unspecified (principal); T40.2X5A Adverse effect of other opioids, initial encounter; M79.7 Fibromyalgia; Z98.890 Other specified postprocedural states; R10.11 Right upper quadrant pain
CPT/HCPCS: 36415; 74177; 78226; 80053; 81001; 81003; 83605; 83690; 84145; 85025; 96365; 96375; 99284; 99406; A9537; G0378; J1170; J2405; J2543; J7050; Q9967

== ENCOUNTER 2018-04-17 09:21 | Emergency (ER) | payer MEDICARE, OTHER, SELFPAY ==
[2018-02-17 22:24] VITALS: BMI 27.4
[2018-04-17 09:25] VITALS: BP 158/96; PULSE 102; RESP 20; TEMP 36.6; O2SAT 99
--- NOTE | 2018-04-17 10:25 | ED.EXTPRO ---
HPI - Extremity Problem General Chief complaint: Extremity Problem,Nontraumatic Stated complaint: LEFT UPPER SHOULDER/BACK PAIN Time Seen by Provider: 04/17/18 10:25 Source: patient Mode of arrival: ambulatory Limitations: no limitations History of Present Illness HPI Narrative: The patient has left back, neck and shoulder pain that started about 4 days ago. She turned her body and felt a tweak in her upper back. The pain has spread and increased since that time. She has a prior history of left thoracic outlet syndrome surgery. She has not been having problems with her left chest or left arm prior to this past week. She was visiting family in [place], and playing with grand children before this incident occurred. She can recall no strain to the area when playing with the grandchildren. She denies associated chest pain or shortness of breath. She has no left arm weakness or numbness, but does have pain in the afflicted area when using the left arm. She is right-hand dominant. Related Data Home Medications Medication Instructions Recorded Confirmed [MEDICAL MARIJUANA] 1 ea PO PRN PRN #0 01/29/17 02/18/18 omega 5-plo-cxw-fish oil [Fish Oil] 1 cap PO QDAY #0 04/23/17 02/18/18 Previous Rx's Medication Instructions Recorded gabapentin 300 mg PO TID #90 cap 02/06/18 desipramine 50 mg PO BEDTIME #20 tab 02/20/18 docusate sodium [Colace] 100 mg PO BID #14 cap 02/20/18 gabapentin 300 mg PO TID #90 cap 02/20/18 hydromorphone 2 mg PO Q4HR PRN #30 tab MDD 6 02/20/18 ibuprofen 600 mg PO QID PRN #40 tab 04/17/18 methocarbamol [Robaxin-] 750 mg PO QID PRN #40 tab 04/17/18 Allergies Allergy/AdvReac Type Severity Reaction Status Date / Time Cephalosporins AdvReac Mild DIARRHEA Verified 02/18/18 10:30 [CEPHALOSPORINS] Review of Systems Constitutional Denies chills, Denies fever(s), Denies lethargy and Denies weakness Cardiovascular Denies chest pain, Denies irregular heart rhythm, Denies lightheadedness, Denies palpitations, Denies dyspnea, Denies dyspnea on exertion and Denies orthopnea Respiratory Denies cough, Denies dyspnea, Denies dyspnea on exertion and Denies wheezing Gastrointestinal Gastrointestinal: Denies abdominal pain, Denies change in bowel habits, Denies diarrhea, Denies nausea and Denies vomiting Musculoskeletal Reports as per HPI and Denies numbness Integumentary/Breasts Denies erythema, Denies rash and Denies wounds Neurologic Denies numbness and Denies weakness Endocrine Denies palpitations Allergic/Immunologic Denies wheezing [facility] Medical History Fibromyalgia (Chronic) Social History household members: spouse Smoking Status: Current every day smoker Exam Initial Vital Signs Initial Vital Signs: Vital Signs Temperature 97.9 F 04/17/18 09:25 Pulse Rate 102 H 04/17/18 09:25 Respiratory Rate 20 04/17/18 09:25 Blood Pressure 158/96 H 04/17/18 09:25 Pulse Oximetry 99 04/17/18 09:25 Const General: cooperative and well developed Nutritional Appearance: well nourished Orientation: alert, awake, oriented x3 and not confused [facility] Head: normal to inspection, normocephalic and atraumatic Neck Other: Tender in the left paraspinal cervical region. Tenderness radiates along the thoracic spine and into the left supraspinatus area. Resp Effort & Inspection: normal respiratory effort, able to speak in complete sentences, no respiratory distress and no use of accessory muscles Auscultation: clear to auscultation bilaterally, no rales, no rhonchi and no wheezes Cardio Rate: regular rate Rhythm: regular rhythm Heart Sounds: no click, no gallops, no murmurs and no rubs Pulses: normal peripheral pulses Back/Spine/Pelvis Cervical Spine: cervical ROM normal Thoracic/Lumbar Spine: thoracic and lumbar spine normal to inspection and other ( Tenderness throughout the distribution of the left trapezius muscle. Spasm in the upper paraspinal regions.) Skin General: no rashes or lesions noted, No jaundice and No petechiae Neuro General: alert, oriented x3, gait normal and no focal motor deficits Speech: speech normal Extrem General: other ( The left arm has normal range of motion. 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 The left arm is neurovascularly intact.) Course Orders Ordered: Discontinued Medications Ketorolac Tromethamine (Toradol) 60 mg IM NOW ONE Stop: 04/17/18 10:34 Last Admin: 04/17/18 11:06 Dose: 60 mg Vital Signs - 8 hr 04/17/18 09:25 04/17/18 10:36 Temperature 97.9 F Pulse Rate 102 H 99 H Respiratory Rate 20 16 Blood Pressure 158/96 H Blood Pressure [Right Arm] 136/90 H Pulse Oximetry 99 99 Discharge Plan Departure Patient Disposition: Home, Self-Care Clinical Impression: Strain of left trapezius muscle Discharge Date/Time: 04/17/18 11:33 Interventions: ED Discharge Assessment Last Done: 04/17/18 11:33 Instructions: DI for Muscle Strain Activity Restrictions/Additional Instructions: Take Motrin and Robaxin every 6 hr as needed for pain and spasm. Walk-in stretch the area frequently over the next several days. Recheck with your doctor in about 1 week if not improved, return here if needed. Prescriptions: New methocarbamol [Robaxin-750] 750 mg tablet 750 mg PO QID PRN (Reason: spasms) Qty: 40 RF: 0 ibuprofen 600 mg tablet 600 mg PO QID PRN (Reason: pain) Qty: 40 RF: 0 No Action [MEDICAL MARIJUANA] 1 ea PO PRN PRN (Reason: Pain (Scale Score 1-3)) Qty: 0 RF: 0 omega 3-lgu-tzf-fish oil [Fish Oil] 1,000 MG capsule 1 cap PO QDAY Qty: 0 RF: 0 gabapentin 100 MG capsule 300 mg PO TID Qty: 90 RF: 0 desipramine 25 mg Tablet 50 mg PO BEDTIME Qty: 20 RF: 0 hydromorphone 2 mg Tablet 2 mg PO Q4HR MDD 6 PRN (Reason: Severe Pain) Qty: 30 RF: 0 gabapentin 300 mg capsule 300 mg PO TID Qty: 90 RF: 0 docusate sodium [Colace] 100 mg capsule 100 mg PO BID Qty: 14 RF: 1
[2018-04-17 10:36] VITALS: BP 136/90; PULSE 99; RESP 16; O2SAT 99
[2018-04-17] MEDS: KETOROLAC 60 MG/2 ML VIAL IM (11:06)
--- NOTE | 2018-04-17 11:34 | PC.NURSE ---
pt states, no relief from toradol, reassured and explained motrin and robaxin, with using ice pack 20 minutes, rest for one hour and then reapply. rtr to er prn. to f/u with primary in one week, verbal understanding, spouse for ride home.
== END 2018-04-17 11:33 | disposition home or self-care (01) ==
PROVIDERS: Emergency Provider Emergency Medicine; PCP Family Medicine
DX: S46.812A Strain of other muscles, fascia and tendons at shoulder and upper arm level, left arm, initial encounter (principal)
CPT/HCPCS: 96372; 99282; 99283; J1885

== ENCOUNTER 2018-09-30 23:14 | Emergency (ER) | payer MEDICARE, OTHER, SELFPAY ==
[2018-02-17 22:24] VITALS: BMI 27.4
[2018-09-30 23:23] VITALS: BP 168/107; PULSE 95; RESP 14; TEMP 36.7; O2SAT 100
--- NOTE | 2018-09-30 23:27 | DI.RAD.S_ITS ---
PROCEDURE: XR CHEST 1V INDICATIONS: sternal chest pain TECHNIQUE: One view of the chest was acquired. COMPARISON: [facility], CT, ANGIO CHEST ABDOMEN PELVIS, 02/01/2018, 17:06. FINDINGS: Surgical changes and devices: Partially visualized cervical spinal hardware and scattered surgical clips in the left hemithorax Lungs and pleura: No pleural effusions or pneumothorax. Lungs are clear. Mediastinum: Mediastinal contours appear normal. Heart size is normal. Bones and chest wall: No suspicious bony lesions. Overlying soft tissues appear unremarkable. IMPRESSION: No acute disease. Dictated by: Aaron Sotelo M.D. on 10/01/2018 at 8:37 Approved by: Aaron Sotelo M.D. on 10/01/2018 at 8:39
--- NOTE | 2018-09-30 23:27 | ED.CHESTPAIN ---
HPI - Chest Pain General Chief Complaint: Chest Pain Stated Complaint: Chest pain woke her up Time Seen by Provider: 09/30/18 23:27 Source: patient Mode of arrival: ambulatory Limitations: no limitations History of Present Illness HPI narrative: The patient coughed and awoke with sudden onset of lower sternal pain. Onset occurred about 1 hr prior to arrival. Pain persist. There is no radiation of pain to her neck, shoulder or back. She has no associated dyspnea. She is a smoker. She is not having persistent cough. She denies ENT complaints, fever or chills. She has had no hemoptysis. She had a similar event 5 days ago, the cough and pain again waking her from sleep. That pain resolved quickly. She was not evaluated. She has no history of CAD, hypertension, hyperlipidemia or diabetes. She does have fibromyalgia. She has no recent illness. Related Data Home Medications Medication Instructions Recorded Confirmed [MEDICAL MARIJUANA] 1 ea PO PRN PRN #0 01/29/17 02/18/18 omega 7-dwf-vbe-fish oil [Fish Oil] 1 cap PO QDAY #0 04/23/17 02/18/18 Previous Rx's Medication Instructions Recorded gabapentin 300 mg PO TID #90 cap 02/06/18 desipramine 50 mg PO BEDTIME #20 tab 02/20/18 docusate sodium [Colace] 100 mg PO BID #14 cap 02/20/18 gabapentin 300 mg PO TID #90 cap 02/20/18 hydromorphone 2 mg PO Q4HR PRN #30 tab MDD 6 02/20/18 ibuprofen 600 mg PO QID PRN #40 tab 04/17/18 methocarbamol [Robaxin-] 750 mg PO QID PRN #40 tab 04/17/18 Allergies Allergy/AdvReac Type Severity Reaction Status Date / Time Cephalosporins AdvReac Mild DIARRHEA Verified 02/18/18 10:30 [CEPHALOSPORINS] Review of Systems Review of Systems All systems reviewed & are unremarkable except as noted in HPI and below Constitutional Denies chills, Denies fever(s), Denies lethargy and Denies weakness ENT Ears, Nose, Mouth, and Throat: Denies change in voice, Denies vertigo, Denies dizziness, Denies neck pain and Denies sore throat Cardiovascular Reports chest pain, Denies irregular heart rhythm, Denies lightheadedness, Denies palpitations, Denies dyspnea, Denies dyspnea on exertion and Denies orthopnea Respiratory Reports cough, Denies dyspnea, Denies dyspnea on exertion and Denies wheezing Gastrointestinal Gastrointestinal: Denies abdominal pain, Denies change in bowel habits, Denies diarrhea, Denies nausea and Denies vomiting Musculoskeletal Reports as per HPI, Denies back pain and Denies neck pain Integumentary/Breasts Denies pruritus, Denies erythema, Denies rash and Denies wounds Neurologic Denies confusion, Denies vertigo, Denies dizziness and Denies weakness Psychiatric Denies confusion Endocrine Denies palpitations Allergic/Immunologic Denies wheezing [facility] Medical History Fibromyalgia (Chronic) No significant past surgical history (Acute) Social History household members: spouse Smoking Status: Current every day smoker Exam Initial Vital Signs Initial Vital Signs: Vital Signs Temperature 98.1 F 09/30/18 23:23 Pulse Rate 95 H 09/30/18 23:23 Respiratory Rate 14 09/30/18 23:23 Blood Pressure 168/107 H 09/30/18 23:23 Pulse Oximetry 100 09/30/18 23:23 Const General: cooperative and well developed Nutritional Appearance: well nourished Orientation: alert, awake, oriented x3 and not confused [facility] Head: normocephalic and atraumatic Face and sinus: face symmetric Mouth: moist mucous membranes Throat: posterior oropharynx normal, tonsils normal and uvula midline Eyes Conjunctivae: conjunctivae normal Sclera: sclerae normal Neck Neck: full ROM, supple, anterior neck swelling and No tender Chest Chest: other (Tenderness over the lower sternum, consistent with her chief complaint, with mild pressure.) Resp Effort & Inspection: normal respiratory effort, able to speak in complete sentences, no respiratory distress and no use of accessory muscles Auscultation: clear to auscultation bilaterally, no rales, no rhonchi and no wheezes Cardio Rate: regular rate Rhythm: regular rhythm Heart Sounds: S1 normal, S2 normal, no click, no gallops, no murmurs and no rubs Pulses: normal peripheral pulses GI Inspection: non-distended Palpation: soft, no hepatosplenomegaly, No guarding, No pulsatile mass and No tender Auscultation: normal bowel sounds Back/Spine/Pelvis Back: No CVA tenderness Skin General: no rashes or lesions noted and No petechiae Neuro General: alert, oriented x3, gait normal and no focal motor deficits Speech: speech normal Extrem General: full ROM, no pedal edema and no calf tenderness Psych Appearance: well kempt Mental Status: mental status grossly normal Attitude: cooperative Thought Content: normal and suicidality Judgment: judgment good Course Orders Ordered: ED Orders 09/30/18 23:25 Complete Blood Count AUTO DIFF Stat Comprehensive Metabolic Panel Stat Partial Thromboplastin Time Stat Prothrombin Time INR Stat Troponin & CK Cardiac Panel Stat 09/30/18 23:27 XR chest 1V Stat EKG-12 Lead Stat 10/01/18 01:27 Troponin I Stat Discontinued Medications Ketorolac Tromethamine (Toradol) 30 mg IV NOW ONE Stop: 10/01/18 00:58 Last Admin: 10/01/18 01:04 Dose: 30 mg Vital Signs - 8 hr 09/30/18 23:23 10/01/18 00:00 10/01/18 00:22 Temperature 98.1 F Pulse Rate 95 H 72 77 Respiratory Rate 14 20 22 Blood Pressure 168/107 H Blood Pressure [Right Arm] 137/81 137/81 Pulse Oximetry 100 100 95 10/01/18 01:00 10/01/18 01:52 Temperature Pulse Rate 69 72 Respiratory Rate 14 14 Blood Pressure Blood Pressure [Right Arm] 137/92 H 138/91 H Pulse Oximetry 97 100 MDM - Chest Pain Medical Records Data Attestation: I reviewed the patient's medical records. Lab Data Attestation: I reviewed the patient's lab results. Result diagrams: 09/30/18 23:25 09/30/18 23:25 Lab Results 09/30/18 09/30/18 09/30/18 Range/Units 23:25 23:25 23:25 WBC 8.6 (4.5-11.0) X10^3/uL RBC 3.94 L (4.0-5.2) X10^6/uL Hgb 13.0 (12.0-16.0) g/dL Hct 38.5 (36-46) % MCV 97.9 (80-100) fL MCH 33.1 (26-34) PG MCHC 33.8 (30-36) % RDW 12.4 (11.6-14.8) % Plt Count 288 (150-400) X10^3/uL Neut % (Auto) 43.8 L (50-75) % Lymph % (Auto) 45.8 H (25-40) % Union % (Auto) 6.8 (3-14) % Eos % (Auto) 2.8 (2-4) % Baso % (Auto) 0.8 (0-2) % Neut # (Auto) 3800 (9444-5510) /uL PT 10.2 (10.1-12.7) SECONDS INR 0.9 (0.9-1.3) APTT 32 (26.4-36.2) SECONDS Sodium 142 (137-145) mmol/L Potassium 3.8 (3.4-5.1) mmol/L Chloride 102 (98-107) mmol/L Carbon Dioxide 29 (22-32) mmol/L BUN 14 (7-17) mg/dL Creatinine 0.70 (0.52-1.04) mg/dL Estimated GFR > 60.0 (>60) mL/min BUN/Creatinine Ratio 20.0 (6-22) Glucose 85 (80-110) mg/dL Calcium 9.9 (8.4-10.2) mg/dL Total Bilirubin 0.2 (0.2-1.3) mg/dL AST 34 (14-36) IU/L ALT 29 (9-52) IU/L Alkaline Phosphatase 97 (38-126) U/L Total Creatine Kinase 45 (30-135) U/L CK-MB (CK-2) TNP CK-MB (CK-2) Rel Index TNP Troponin I < 0.012 (0.01-0.034) ng/mL Total Protein 7.6 (6.3-8.2) g/dL Albumin 4.5 (3.5-5.0) g/dL Globulin 3.1 (1.7-4.1) g/dL Albumin/Globulin Ratio 1.5 (1.0-2.8) 12/18/18 Range/Units 01:27 WBC (4.5-11.0) X10^3/uL RBC (4.0-5.2) X10^6/uL Hgb (12.0-16.0) g/dL Hct (36-46) % MCV (80-100) fL MCH (26-34) PG MCHC (30-36) % RDW (11.6-14.8) % Plt Count (150-400) X10^3/uL Neut % (Auto) (50-75) % Lymph % (Auto) (25-40) % Union % (Auto) (3-14) % Eos % (Auto) (2-4) % Baso % (Auto) (0-2) % Neut # (Auto) (6658-9873) /uL PT (10.1-12.7) SECONDS INR (0.9-1.3) APTT (26.4-36.2) SECONDS Sodium (137-145) mmol/L Potassium (3.4-5.1) mmol/L Chloride (98-107) mmol/L Carbon Dioxide (22-32) mmol/L BUN (7-17) mg/dL Creatinine (0.52-1.04) mg/dL Estimated GFR (>60) mL/min BUN/Creatinine Ratio (6-22) Glucose (80-110) mg/dL Calcium (8.4-10.2) mg/dL Total Bilirubin (0.2-1.3) mg/dL AST (14-36) IU/L ALT (9-52) IU/L Alkaline Phosphatase (38-126) U/L Total Creatine Kinase (30-135) U/L CK-MB (CK-2) CK-MB (CK-2) Rel Index Troponin I < 0.012 (0.01-0.034) ng/mL Total Protein (6.3-8.2) g/dL Albumin (3.5-5.0) g/dL Globulin (1.7-4.1) g/dL Albumin/Globulin Ratio (1.0-2.8) Imaging Data Chest x-ray: Attestation: I personally reviewed and interpreted this imaging study as follows: My impression: Normal ECG Data Attestation: I personally reviewed and interpreted this ECG as follows: (Normal sinus rhythm rate [address]pm. [address]. No acute [address] T wave changes. No ectopy. EKG is compared to a prior EKG, there is no change.) [facility] Narrative Medical decision making narrative: EKG is normal for the patient. Her exam is most suggestive of chest wall pain. This may be somehow exacerbated by her fibromyalgia, but the coughing seems to be the trigger event. See HPI. Troponin is normal x2. She will be discharged on ibuprofen as well as tramadol. Discharge Plan Departure Patient Disposition: Home Clinical Impression: Acute chest wall pain Instructions: DI for Atypical Chest Pain Activity Restrictions/Additional Instructions: By the initial exam and clinical evaluation her discomfort is likely chest wall pain. There is no evidence of cardiac problems. Take ibuprofen every 6 hr as needed for pain. Ibuprofen every 6 hr for added pain control. Follow-up with her doctor if you continue to have these episodes. Return the ER if you have significant increase in pain or if you develop problems breathing. Prescriptions: No Action [MEDICAL MARIJUANA] 1 ea PO PRN PRN (Reason: Pain (Scale Score 1-3)) Qty: 0 RF: 0 omega 4-reg-acn-fish oil [Fish Oil] 1,000 MG capsule 1 cap PO QDAY Qty: 0 RF: 0 gabapentin 100 MG capsule 300 mg PO TID Qty: 90 RF: 0 desipramine 25 mg Tablet 50 mg PO BEDTIME Qty: 20 RF: 0 hydromorphone 2 mg Tablet 2 mg PO Q4HR MDD 6 PRN (Reason: Severe Pain) Qty: 30 RF: 0 gabapentin 300 mg capsule 300 mg PO TID Qty: 90 RF: 0 docusate sodium [Colace] 100 mg capsule 100 mg PO BID Qty: 14 RF: 1 methocarbamol [Robaxin-750] 750 mg tablet 750 mg PO QID PRN (Reason: spasms) Qty: 40 RF: 0 ibuprofen 600 mg tablet 600 mg PO QID PRN (Reason: pain) Qty: 40 RF: 0
[2018-09-30 23:38] LABS: INR 0.9 (0.9-1.3); Prothrombin Time 10.2 SECONDS (10.1-12.7)
[2018-09-30 23:40] LABS: Add Manual Diff / Slide Review NO; Basophils Percent Auto 0.8 % (0-2); Eosinophils Percent Auto 2.8 % (2-4); Hematocrit 38.5 % (36-46); Lymphocytes Percent Auto 45.8 % (25-40); Mean Corpuscular HGB Conc 33.8 % (30-36); Mean Corpuscular Hemoglobin 33.1 PG (26-34); Mean Corpuscular Volume 97.9 fL (80-100); Monocytes Percent Auto 6.8 % (3-14); Neutrophils Absolute Auto 3800 /uL (1500-7000); Neutrophils Percent Auto 43.8 % (50-75); Platelet Count 288 X10^3/uL (150-400); Red Blood Cell Count 3.94 X10^6/uL (4.0-5.2); Red Cell Distribution Width 12.4 % (11.6-14.8); White Blood Cell Count 8.6 X10^3/uL (4.5-11.0)
[2018-09-30 23:41] LABS: PTT Partial Thromboplastin Tim 32 SECONDS (26.4-36.2)
[2018-09-30 23:42] LABS: Alanine Aminotransferase 29 IU/L (9-52); Albumin 4.5 g/dL (3.5-5.0); Albumin Globulin Ratio 1.5 (1.0-2.8); Alkaline Phosphatase 97 U/L (38-126); Aspartate Aminotransferase 34 IU/L (14-36); Bilirubin Total 0.2 mg/dL (0.2-1.3); Blood Urea Nitrogen 14 mg/dL (7-17); Calcium 9.9 mg/dL (8.4-10.2); Carbon Dioxide 29 mmol/L (22-32); Chloride 102 mmol/L (98-107); Creatine Kinase 45 U/L (30-135); Estimated Glomerular Filt Rate > 60.0 mL/min (>60); Globulin 3.1 g/dL (1.7-4.1); Glucose 85 mg/dL (80-110); HEMOLYSIS < 15 (0-50); Potassium 3.8 mmol/L (3.4-5.1); Sodium 142 mmol/L (137-145); Total Protein 7.6 g/dL (6.3-8.2)
[2018-09-30 23:55] LABS: Troponin I < 0.012 ng/mL (0.01-0.034)
[2018-10-01] VITALS: BP 137/81; PULSE 72; RESP 20; O2SAT 100
[2018-10-01 00:22] VITALS: BP 137/81; PULSE 77; RESP 22; O2SAT 95
[2018-10-01 01:00] VITALS: BP 137/92; PULSE 69; RESP 14; O2SAT 97
[2018-10-01] MEDS: KETOROLAC 60 MG/2 ML VIAL 30 MG IV (01:04)
[2018-10-01 01:52] VITALS: BP 138/91; PULSE 72; RESP 14; O2SAT 100
[2018-10-01 01:58] LABS: Troponin I < 0.012 ng/mL (0.01-0.034)
[2018-10-01] MEDS: TRAMADOL 50 MG PREPACK 1 BOTTLE MISC (02:47)
[2018-10-01 02:52] VITALS: BP 131/88; PULSE 81; RESP 18; O2SAT 98
== END 2018-10-01 02:54 | disposition home or self-care (01) ==
PROVIDERS: Emergency Provider Emergency Medicine; PCP Family Medicine
DX: R07.89 Other chest pain (principal)
CPT/HCPCS: 36415; 36591; 71045; 80053; 82550; 84484; 85025; 85610; 85730; 93005; 96374; 99283; 99285; J1885

== ENCOUNTER → 2019-02-26 09:12 | Outpatient (CLI) | payer MEDICARE, OTHER, SELFPAY ==
[2018-02-17 22:24] VITALS: BMI 27.4
--- NOTE | 2019-02-26 | DI.MRI.S_ITS ---
PROCEDURE: MR LUMBAR SPINE WO CON INDICATIONS: LOW BACK PAIN TECHNIQUE: Noncontrast sagittal T1 spin echo and T2 fast echo, sagittal STIR, axial T1 and T2 fast spin echo through the lumbar spine. In cases with scoliosis, additional coronal T2 fast spin echo may be performed. COMPARISON: [facility], CT, CT ABDOMEN PELVIS W CON, 02/17/2018, 17:56. FINDINGS: Image quality: Excellent. Alignment and Curvature: 5 lumbar type vertebral bodies are present by CT. There is mild, grade 1 anterolisthesis of L3 on L4. Bone Marrow: Marrow is of normal overall signal. No acute vertebral body compression fractures. Mild reactive signal within the endplates adjacent to the the L2-L3, L3-L4, and L4-L5 intervertebral discs. Spinal Cord: Conus medullaris terminates at the lower L1 level. Visualized cord demonstrates normal signal and size. Paraspinous Soft Tissues: No paravertebral masses. L1-L2: Normal appearance. L2-L3: Mild disc desiccation. Mild diffuse disc bulge. Mild bilateral facet hypertrophy. Mild epidural lipomatosis. Mild canal stenosis. No significant foraminal stenosis. L3-L4: Mild disc height loss and desiccation. Mild diffuse disc bulge. Mild bilateral facet and ligamentum flavum hypertrophy. Mild epidural lipomatosis. Mild canal stenosis. Mild bilateral foraminal stenosis. L4-L5: Mild disc height loss. Moderate disc desiccation. Mild diffuse disc bulge. Mild facet hypertrophy. Mild epidural lipomatosis. Mild canal stenosis. Moderate bilateral foraminal stenosis. L5-S1: Mild disc desiccation. Mild diffuse disc bulge. Mild bilateral facet hypertrophy. Mild canal stenosis. Moderate bilateral foraminal stenosis. IMPRESSION: 1. Multilevel degenerative disc and facet disease, as well as ligamentum flavum hypertrophy and epidural lipomatosis. 2. Mild multilevel canal stenoses. 3. Multilevel foraminal stenoses, worst at L4-L5 and L5-S1 bilaterally where there are moderate foraminal stenoses present. Dictated by: Aliyah Fleming M.D. on 02/26/2019 at 13:59 Approved by: Aliyah Fleming M.D. on 02/26/2019 at 14:02
== END ==
PROVIDERS: PCP Family Medicine; Visit Provider Anesthesiology Pain Medicine
DX: M54.5 Low back pain (principal); M51.16 Intervertebral disc disorders with radiculopathy, lumbar region; M51.17 Intervertebral disc disorders with radiculopathy, lumbosacral region; M48.061 Spinal stenosis, lumbar region without neurogenic claudication; M48.07 Spinal stenosis, lumbosacral region; M96.1 Postlaminectomy syndrome, not elsewhere classified; E88.2 Lipomatosis, not elsewhere classified; G89.29 Other chronic pain
CPT/HCPCS: 72148

== ENCOUNTER → 2022-01-02 11:11 | Outpatient (CLI) | payer OTHER, MEDICARE, SELFPAY ==
[2018-02-17 22:24] VITALS: BMI 27.4
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
== END ==
PROVIDERS: PCP Family Medicine; Referring Provider Physician Assistant; Visit Provider Physician Assistant
DX: M54.2 Cervicalgia (principal)
CPT/HCPCS: 72040